=== PATIENT | female | born 1945 | race Caucasian/White ===

== ENCOUNTER → 2017-08-31 | Day surgery (SDC) | payer MEDICARE, BC ==
[~2017-08-31] MED LIST: ACETAMINOPHEN 1,000 MG/100 ML BTL IV ONE; BUPIVACAINE 0.25% W/EPI MPF 30ML VIAL IVP ONE; FENTANYL PF 100MCG/2ML VIAL IV ONE; KETOROLAC 30 MG/ML VIAL IVP ONE; LIDOCAINE 2% MDV (20MG/ML) 20ML VIAL IV ONE; METOCLOPRAMIDE HCL 10 MG/2 ML VIAL IVP ONE; MIDAZOLAM HCL 2MG/2ML VIAL IV ONE; ONDANSETRON HCL IV 4 MG/2 ML VIAL IVP ONE; PROPOFOL 10 MG/ML VIAL IV ONE; SCOPOLAMINE 1 PATCH TDSY TD ONE; SEVOFLURANE 250 ML INH ONE
[2017-08-31 09:06] LABS: BASO % 0.2 % (0-6); EOS % 1.4 % (0-6); GRAN % 63.3 % (47-80); HEMATOCRIT 41.8 % (35.0-47.0); HEMOGLOBIN 13.6 gm/dl (11.6-16.0); LYMPH % 27.3 % (16-45); MEAN CELL VOLUME 89.9 fl (81-97); MEAN CORPUSCULAR HEMOGLOBIN 29.2 pg (27-33); MEAN CORPUSCULAR HGB CONC 32.5 g/dl (32-36); MEAN PLATELET VOLUME 9.3 fl (7.4-10.4); MONO % 7.8 % (0-9); PLATELET COUNT 248 K/uL (130-400); RED BLOOD COUNT 4.65 M/uL (3.80-5.40); RED CELL DISTRIBUTION WIDTH 13.4 % (11.5-14.5)
[2017-08-31 09:19] LABS: BLOOD UREA NITROGEN 7 mg/dL (8-23); CREATININE 0.5 mg/dL (0.5-0.9); EST GLOMERULAR FILTRATION RATE > 60 mL/min; GLUCOSE,RANDOM 231 mg/dL (74-109)
[2017-08-31 09:25] LABS: PARTIAL THROMBOPLASTIN TIME 28.9 SECONDS (24.5-39.1); PROTHROMBIN TIME (PATIENT) 10.7 SECONDS (9.5-12.1)
--- NOTE | 2017-08-31 17:00 | Operative Note ---
DATE OF SURGERY: 08/31/2017 PREOPERATIVE DIAGNOSES: 1. Torn medial meniscus, left knee. 2. Chondromalacia, left knee. POSTOPERATIVE DIAGNOSES: 1. Torn medial and lateral meniscus, left knee. 2. Synovitis, left knee (2 compartments). 3. Chondromalacia of the medial femoral condyle, lateral femoral condyle, and patella, left knee. OPERATIVE PROCEDURES: 1. Arthroscopic partial medial and lateral meniscectomy, left knee. 2. Arthroscopic partial synovectomy, left knee (2 compartments). 3. Arthroscopy chondroplasty, medial femoral condyle, lateral femoral condyle, and patella, left knee. DESCRIPTION: This 72-year-old female was taken to the operating room and placed in the supine position on the operating room table. A general anesthetic was administered. Left lower extremity was elevated, prepped with Hibiclens and draped in the usual sterile fashion after exsanguination and tourniquet, elevation, and knee-patricio application. The tourniquet was inflated to 300 mm Hg. After standard prepping and draping, an inferolateral portal was established for the 4 mm arthroscope. Initial evaluation of the joint demonstrated grade 3 chondromalacia of the patella with synovitis in the suprapatellar area and fat pad, and partial synovectomy and chondroplasty was performed there to stabilize the articular cartilage. It was reprobed through an inferomedial portal, and this was confirmed to be stable. The trochlea appeared to be relatively normal. The medial and lateral gutters were examined and found to be normal. The medial compartment was entered, and a tear of the medial meniscus was present. This was a horizontal cleavage tear with the apex at approximately the 11:30 position. We resected back to the apex of the tear and then tapered in each direction to restore smooth, contoured surface. This was then reprobed and confirmed to be stable. The depth of the meniscal tear was approximately 4-5 mm. Grade 2 chondromalacia in the entire weightbearing surface of the medical femoral condyle was present, and chondroplasty was performed to stabilize the articular cartilage there. There was also a rather intense synovitis in the medial compartment and in the intercondylar notch. It appears there had been some tearing of the ligamentum mucosum from the fall that she sustained. The anterior cruciate ligament, however, appeared to be normal. Synovectomy in the intercondylar notch was performed to removed the scar tissue. We then entered the lateral compartment and a severe complex tear of the lateral meniscus was present. This tear was in the anterior horn and extended all the way around to the posterior horn, with the apex being at approximately the 3 o'clock position. This was within 2-3 mm from the meniscal synovial junction. This tear did not enter the popliteal hiatus. After resection of the unstable fragments, we reprobed and it did not reveal any instability of the lateral meniscus. The lateral femoral condyle was shaved to restore stability to the articular cartilage there. Grade 3 changes noted throughout the entire weightbearing surface. The joint was then copiously irrigated and suctioned, the instruments were removed, the portals infiltrated with 0.25% Marcaine with epinephrine, sterile dressings applied, tourniquet and knee-patricio released, and the patient taken to the recovery room in satisfactory condition. GROSS PATHOLOGY: Patient demonstrated grade 3 chondromalacia of the patella and medial femoral condyle and lateral femoral condyle. Tears of the both the medial and lateral meniscus were present as described above. There was also significant synovitis throughout the knee as described. CC: DO YESICA Sanchez
== END | disposition home or self-care (01) ==
LOC: SUR 08:50
PROVIDERS: ATTEND Orthopaedic Surgery
DX: M23.242 Derangement of anterior horn of lateral meniscus due to old tear or injury, left knee (principal); M23.232 Derangement of other medial meniscus due to old tear or injury, left knee; M65.9 Synovitis and tenosynovitis, unspecified; I10 Essential (primary) hypertension; E11.9 Type 2 diabetes mellitus without complications; Z79.4 Long term (current) use of insulin; Z79.01 Long term (current) use of anticoagulants; I48.91 Unspecified atrial fibrillation; Z79.84 Long term (current) use of oral hypoglycemic drugs; E78.5 Hyperlipidemia, unspecified
CPT/HCPCS: 29880; 29876; 01400; 85025; 85730; 85610; 80048; J1885; J2405; J3010; J2765